=== PATIENT | male | born 1980 | race Caucasian/White ===

== ENCOUNTER 2019-05-12 17:22 | Emergency (ER) | payer OTHER ==
--- NOTE | 2019-05-12 17:46 | ER Document Report ---
ED Medical Screen (RME) - General Chief Complaint: Nausea/Vomiting Stated Complaint: STOMACH PAIN Time Seen by Provider: 05/12/19 17:42 Mode of Arrival: Ambulatory Information source: Patient Notes: 38-year-old male presents to ED for complaint of chest and epigastric pain times a week. He states he has had nausea and vomiting. He states he socially drinks. Smokes a pack a day and denies use of illicit drugs. states that he fell about a month or so ago and he also lifts heavy stones she does not know if he injured himself and then has reinjured himself while lifting. States he does eat a lot of heavy fatty foods. I have greeted and performed a rapid initial assessment of this patient. A comprehensive ED assessment and evaluation of the patient, analysis of test results and completion of medical decision making process will be conducted by an additional ED providers. Physical Exam - Vital signs Vitals: Temp Pulse Resp BP Pulse Ox 98.4 F 75 17 132/85 H 98 05/12/19 17:39 05/12/19 17:39 05/12/19 17:39 05/12/19 17:39 05/12/19 17:39 Course - Vital Signs Vital signs: Temp Pulse Resp BP Pulse Ox 98.4 F 75 17 132/85 H 98 05/12/19 17:39 05/12/19 17:39 05/12/19 17:39 05/12/19 17:39 05/12/19 17:39
--- NOTE | 2019-05-12 18:09 | RADIOLOGY REPORT (SQ) ---
EXAM DESCRIPTION: CHEST 2 VIEWS COMPLETED DATE/TIME: 05/12/2019 5:59 pm REASON FOR STUDY: chest pain COMPARISON: None. EXAM PARAMETERS: NUMBER OF VIEWS: two views TECHNIQUE: Digital Frontal and Lateral radiographic views of the chest acquired. RADIATION DOSE: NA LIMITATIONS: none FINDINGS: LUNGS AND PLEURA: No opacities, masses or pneumothorax. No pleural effusion. MEDIASTINUM AND HILAR STRUCTURES: No masses or contour abnormalities. HEART AND VASCULAR STRUCTURES: Heart normal size. No evidence for failure. BONES: No acute findings. HARDWARE: None in the chest. OTHER: No other significant finding. IMPRESSION: NO ACUTE RADIOGRAPHIC FINDING IN THE CHEST. TECHNICAL DOCUMENTATION: JOB ID: [id number] [employer]- All Rights Reserved Reading location - IP/workstation name: [email or web address]
[2019-05-12 18:21] LABS: ABSOLUTE EOSINOPHILS # (AUTO) 0.2 10^3/uL (0.0-0.6); ABSOLUTE LYMPHOCYTES (AUTO) 3.5 10^3/uL (0.5-4.7); ABSOLUTE MONOCYTES (AUTO) 0.8 10^3/uL (0.1-1.4); ABSOLUTE NEUT (AUTO) 7.5 10^3/uL (1.7-8.2); BASOPHILS % (AUTO) 0.3 % (0-2); EOSINOPHILS % (AUTO) 1.6 % (0-6); HEMATOCRIT 38.8 % (37.9-51.0); HEMOGLOBIN 13.3 g/dL (13.5-17.0); LYMPHOCYTES % (AUTO) 29.2 % (13-45); MEAN CORPUSCULAR HEMOGLOBIN 31.9 pg (27.0-33.4); MEAN CORPUSCULAR HGB CONC 34.3 g/dL (32.0-36.0); MEAN CORPUSCULAR VOLUME 93 fl (80-97); MONOCYTES % (AUTO) 6.4 % (3-13); PLATELET COUNT 217 10^3/uL (150-450); RED BLOOD COUNT 4.18 10^6/uL (4.35-5.55); RED CELL DISTRIBUTION WIDTH 12.9 % (11.5-14.0); SEGMENTED NEUTROPHILS % (AUTO) 62.5 % (42-78); TOTAL CELLS COUNTED % (AUTO) 100 %; WHITE BLOOD COUNT 11.9 10^3/uL (4.0-10.5)
[2019-05-12 18:33] LABS: INTERNATIONAL RATION (INR) 0.96; PROTHROMBIN TIME 12.8 SEC (11.4-15.4)
[2019-05-12 18:34] LABS: PARTIAL THROMBOPLASTIN TIME 30.7 SEC (23.5-35.8)
[2019-05-12 18:48] LABS: ALBUMIN 4.3 g/dL (3.5-5.0); ALKALINE PHOSPHATASE 71 U/L (38-126); ANION GAP 6 (5-19); ASPARTATE AMINO TRANSFERASE 20 U/L (17-59); BILIRUBIN,DIRECT 0.1 mg/dL (0.0-0.4); BILIRUBIN,TOTAL 0.2 mg/dL (0.2-1.3); BLOOD UREA NITROGEN 16 mg/dL (7-20); CALCIUM 9.6 mg/dL (8.4-10.2); CARBON DIOXIDE 29 mmol/L (22-30); CHLORIDE 105 mmol/L (98-107); CREATINE KINASE 41 U/L (55-170); GLUCOSE 93 mg/dL (75-110); POTASSIUM 4.9 mmol/L (3.6-5.0); TOTAL PROTEIN 7.3 g/dL (6.3-8.2)
[2019-05-12 19:04] LABS: CREATINE KINASE MB 0.34 ng/mL (<4.55); NT PRO BNP 22 pg/mL (<125)
[2019-05-12 19:05] LABS: TROPONIN I < 0.012 ng/mL
--- NOTE | 2019-05-12 19:59 | RADIOLOGY REPORT (SQ) ---
EXAM DESCRIPTION: U/S ABDOMEN LIMITED W/O DOP COMPLETED DATE/TIME: 05/12/2019 7:38 pm REASON FOR STUDY: epigastric pain COMPARISON: None. TECHNIQUE: Dynamic and static grayscale images acquired of the abdomen and recorded on PACS. Donnieo vladislav selected color Doppler and spectral images recorded. LIMITATIONS: None. FINDINGS: PANCREAS: No masses. Visualized pancreatic duct normal caliber. LIVER: Mildly enlarged. No masses. Echotexture normal. LIVER VASCULATURE: Normal directional flow of the main portal vein and hepatic veins. GALLBLADDER: No stones. Normal wall thickness. No pericholecystic fluid. ULTRASOUND-DETECTED REESE'S SIGN: Negative. INTRAHEPATIC DUCTS AND COMMON DUCT: CBD and intrahepatic ducts normal caliber. No filling defects. INFERIOR VENA CAVA: Normal flow. AORTA: Mid abdominal aorta measures 2.4 cm in caliber. RIGHT KIDNEY: Normal size. Normal echogenicity. 1.7 cm simple cyst the inferior pole. . No hydrone phrosis. No calcifications. PERITONEAL AND RIGHT PLEURAL SPACE: No ascites or effusions. OTHER: No other significant findings. IMPRESSION: No acute right upper quadrant findings. Mild hepatomegaly. Mid abdominal aortic ectasia measuring 2.4 cm. TECHNICAL DOCUMENTATION: JOB ID: [id number] [employer]- All Rights Reserved Reading location - IP/workstation name: [email or web address]
--- NOTE | 2019-05-12 20:16 | ER Document Report ---
ED General - General Chief Complaint: Nausea/Vomiting Stated Complaint: STOMACH PAIN Time Seen by Provider: 05/12/19 17:42 Primary Care Provider: GUILLE ARCE [Primary Care Provider] - Follow up as needed Mode of Arrival: Ambulatory Information source: Patient - [facility] Notes: Patient presents complaining of chest pain. He has had the pain for 1 week. It is left-sided. It is a pressure sensation. It is moderate in intensity. He has had no significant sweating. He has had nausea. He has had occasional shortness of breath. He states that the nausea started 3 to 4 days ago. He states he is throwing up 1-2 times per day. He states however that he does have a normal appetite. He denies any previous past medical history. He states he has no family history of cardiac disease. He states he takes no medicines daily and has no known medical problems. No previous surgeries. No cough cold or congestion. No trauma. The pain does not radiate. It is intermittent and he states it is worse as the day goes on each day. Past Medical History - General Information source: Patient - Social History Smoking Status: Current Every Day Smoker Frequency of alcohol use: None Drug Abuse: None Family History: Reviewed & Not Pertinent Patient has suicidal ideation: No Patient has homicidal ideation: No Review of Systems - Review of Systems Constitutional: denies: Fever, Malaise, Weakness Cardiovascular: Chest pain. denies: Palpitations Respiratory: Short of breath. denies: Cough Gastrointestinal: Vomiting. denies: Diarrhea -: Yes All other systems reviewed and negative Physical Exam - Vital signs Vitals: Temp Pulse Resp BP Pulse Ox 98.4 F 75 17 132/85 H 98 05/12/19 17:39 05/12/19 17:39 05/12/19 17:39 05/12/19 17:39 05/12/19 17:39 Interpretation: Normal - General General appearance: Appears well, Alert - HEENT Head: Normocephalic, Atraumatic Eyes: Normal Pupils: PERRL - Respiratory Respiratory status: No respiratory distress Chest status: Nontender Breath sounds: Normal Chest palpation: Normal - Cardiovascular Rhythm: Regular Heart sounds: Normal auscultation Murmur: No - Abdominal Inspection: Normal Distension: No distension Bowel sounds: Normal Tenderness: Nontender Organomegaly: No organomegaly - Back Back: Normal, Nontender - Extremities General upper extremity: Normal inspection, Nontender, Normal color, Normal ROM, Normal temperature General lower extremity: Normal inspection, Nontender, Normal color, Normal ROM, Normal temperature, Normal weight bearing. No: Orville's sign - Neurological Neuro grossly intact: Yes Cognition: Normal Orientation: AAOx4 Jorge Luis Coma Scale Eye Opening: Spontaneous Jorge Luis Coma Scale Verbal: Oriented [place] Coma Scale Motor: Obeys Commands [place] Coma Scale Total: 15 Speech: Normal Motor strength normal: LUE, RUE, LLE, RLE Sensory: Normal - Psychological Associated symptoms: Normal affect, Normal mood - Skin Skin Temperature: Warm Skin Moisture: Dry Skin Color: Normal Course - Re-evaluation Re-evalutation: 05/12/19 22:12 Patient presents with left-sided chest pressure. Work-up was unremarkable. His EKG is unremarkable troponin is negative. Chest CT is also negative. He has had the pain for 1 week without any significant associated symptoms except for some vomiting. I think the patient is stable for discharge home with outpatient stress test. I have discussed an outpatient stress test with him and he states he will call in the morning to arrange this. His heart score is 2. - Vital Signs Vital signs: Temp Pulse Resp BP Pulse Ox 98.4 F 75 17 132/85 H 97 05/12/19 17:39 05/12/19 17:39 05/12/19 17:39 05/12/19 17:39 05/12/19 18:40 - Laboratory Result Diagrams: 05/12/19 18:07 05/12/19 18:07 Laboratory results interpreted by me: 05/12/19 05/12/19 05/12/19 18:07 18:07 18:07 WBC 11.9 H RBC 4.18 L Hgb 13.3 L Creatine Kinase 41 L TSH 5.15 H - Diagnostic Test Radiology reviewed: Image reviewed, Reports reviewed - EKG Interpretation by Me EKG shows normal: Sinus rhythm Rate: Normal - 72 Rhythm: NSR [place]/QRS: No: Right axis deviation, Left axis deviation Discharge - Discharge Clinical Impression: Chest pain Qualifiers: Chest pain type: unspecified Qualified Code(s): R07.9 - Chest pain, unspecified Condition: Stable Disposition: HOME, SELF-CARE Instructions: Chest Pain of Unclear Cause ([facility]) Additional Instructions: Please call the [facility] medical provider first thing in the morning to discuss outpatient cardiac stress test. Please try to obtain this as soon as possible. Referrals: [facility] [Primary Care Provider] - Follow up tomorrow
--- NOTE | 2019-05-12 21:51 | RADIOLOGY REPORT (SQ) ---
EXAM DESCRIPTION: CT CHEST ANGIOGRAPHY WITHOUT THEN WITH IV CONTRAST, three-dimensional reconstructions COMPLETED DATE/TME: 05/12/2019 20:11 CLINICAL HISTORY: 38 years, Male, cp This exam was performed according to our departmental dose-optimization program which includes automated exposure control, adjustment of the mA and/or kVp according to patient size and/or use of iterative reconstruction technique where applicable. FINDINGS: Aorta is within normal limits with no aneurysm or dissection. Pulmonary arteries are well opacified with no significant filling defects in the pulmonary arterial tree to suggest acute pulmonary embolism. No significant mediastinal, hilar or axillary lymphadenopathy. No pleural or pericardial effusions. Visualized upper abdominal organs are within normal limits. Evaluation of the lung parenchyma demonstrates trachea and major airways to be patent. No suspicious lung nodules or masses. No consolidations to suggest pneumonia. IMPRESSION: No acute pulmonary embolism. No acute pathology.
[2019-05-12 22:45] VITALS: BP 132/81
--- NOTE | 2019-05-13 09:26 | EKG REPORT ---
SEVERITY:- NORMAL ECG - SINUS RHYTHM : Confirmed by: Lexie Henry MD 13-May-2019 09:26:03
== END 2019-05-12 23:01 | disposition home or self-care (01) ==
LOC: ER 17:22
DX: R07.89 Other chest pain (principal); R06.02 Shortness of breath; R11.2 Nausea with vomiting, unspecified; F17.200 Nicotine dependence, unspecified, uncomplicated
CPT/HCPCS: 36415; 71046; 71275; 76705; 80053; 82550; 82553; 83690; 83735; 83880; 84443; 84484; 85025; 85610; 85730; 93005; 93010; 99284